=== PATIENT | female | born 1980 | race Caucasian/White ===

== ENCOUNTER 2016-10-05 18:27 | Emergency (ER) | payer OTHER ==
[~2016-10-05] VITALS: Ht 175.3 cm; Wt 113.5 kg
[~2016-10-05 18:27] MED LIST: CYMBALTA30 MG PO; LORTAB 10 MG-3473 ML PO; NEURONTIN300 MG PO; SEROQUEL50 MG PO; SUBOXONE 8 MG-1 EAC2 SL; TOPROL XL25 MG PO; XANAX1 MG PO; ZITHROMAX Z-PA250 MG PO
[2016-10-05] MEDS ORDERED: PERCOCET 5/31 TABLET PO (20:51)
[2016-10-05] MEDS ORDERED: CLEOCIN300 MG PO (20:51)
[2016-10-05 21:20] VITALS: BP 112/67
== END 2016-10-05 21:23 | disposition home or self-care (01) ==
LOC: EME 18:27
PROC: 0H9DXZZ Drainage of Right Lower Arm Skin, External Approach (ICD-10-PCS; principal; 2016-10-05)
DX: L02.413 Cutaneous abscess of right upper limb (principal); F17.200 Nicotine dependence, unspecified, uncomplicated
CPT/HCPCS: 87070; 87075; 87076; 87077; 87205; 99281; 99284

== ENCOUNTER 2016-10-07 20:13 | Emergency (ER) | payer OTHER ==
[~2016-10-07] VITALS: Ht 175.3 cm; Wt 112.1 kg
[~2016-10-07 20:13] MED LIST changes: +CLEOCIN300 MG PO; +PERCOCET 5/31 TABLET PO
[2016-10-07] MEDS ORDERED: PERCOCET 5/31 TABLET PO (21:08)
[2016-10-07 21:47] VITALS: BP 128/81
== END 2016-10-07 21:50 | disposition home or self-care (01) ==
LOC: EME 20:13
DX: L02.413 Cutaneous abscess of right upper limb (principal); Z48.01 Encounter for change or removal of surgical wound dressing; F17.200 Nicotine dependence, unspecified, uncomplicated
CPT/HCPCS: 99281; 99283

== ENCOUNTER 2016-11-08 02:04 | Inpatient (IN) | payer OTHER ==
[~2016-11-08] VITALS: Ht 172.7 cm; Wt 110.1 kg
[2016-11-08 02:37] LABS: MCH 31.7 PG (29.0-34.0); MCHC 33.4 G/DL (30.0-36.0); MCV 94.9 FL (83-99); MEAN PLAT.VOLUME 10.2 uM^3 (9.5-12.4); PLATELET COUNT 251 K/uL (156-360); RBC DIS.WIDTH-CV 12.6 % (11.8-14.6); RBC DIS.WIDTH-SD 43.5 % (39-53); RED BLOOD COUNT 4.95 M/uL (3.80-5.20); WHITE BLOOD COUNT 9.7 K/uL (4.1-10.2)
[2016-11-08 02:46] LABS: CHLORIDE 107 mEq/L (99-109); SODIUM 140 mEq/L (136-147)
[2016-11-08 02:48] LABS: GLUCOSE 78 mg/dL (70-99)
[2016-11-08 02:49] LABS: ANION GAP 11 MEQ/L (2-14)
[2016-11-08 02:51] LABS: SERUM ETHYL ALCOHOL < 10 mg/dL
[2016-11-08 02:52] LABS: GFR ESTIMATE (CALCULATED) > 59 mL/min/
[2016-11-08 02:53] LABS: UREA NITROGEN (BUN) 7 mg/dL (9-23)
[2016-11-08 03:00] LABS: QUANTITATIVE HCG < 4.0 MIU/ML
[2016-11-08 06:30] LABS: ADD MEDTOX COMMENT Y; AMPHETAMINE NEGATIVE (500 ng/mL); BARBITURATES NEGATIVE (200 ng/mL); BENZODIAZEPINES PRESUMPTIVE POSITIVE (150 ng/mL); COCAINE PRESUMPTIVE POSITIVE (150 ng/mL); INTERNAL CONTROLS VALID? YES; METHADONE NEGATIVE (200 ng/mL); METHAMPHETAMINE NEGATIVE (500 ng/mL); OPIATES (MORPHINE) NEGATIVE (100 ng/mL); OXYCODONE NEGATIVE (100 ng/mL); PHENCYCLIDINE NEGATIVE (25 ng/mL); PROPOXYPHENE NEGATIVE (300 ng/mL); THC CANNABINOIDS NEGATIVE (50 ng/mL); TRICYCLIC ANTIDEPRESSANTS PRESUMPTIVE POSITIVE (300 ng/mL)
[2016-11-08 07:13] LABS: BENZODIAZEPINES, URINE SCREEN POSITIVE (200 ng/mL)
[2016-11-08] MEDS ORDERED: CYMBALTA60 MG PO (08:44)
[2016-11-08] MEDS ORDERED: SUBOXONE 8 MG-1 EAC2 SL (08:44)
[2016-11-08] MEDS ORDERED: LEVO-T50 MCG PO (08:45)
[2016-11-08] MEDS ORDERED: TOPAMAX50 MG PO (08:45)
[2016-11-08 14:28] VITALS: BP 186/113
[2016-11-08 15:22] VITALS: BP 142/84
[2016-11-08] MEDS ORDERED: TOPIRAMATE100 MG PO (18:10)
[2016-11-08 19:07] VITALS: BP 152/85
[2016-11-09 07:48] VITALS: BP 137/82
[2016-11-09 15:27] VITALS: BP 142/101
[2016-11-09 18:21] VITALS: BP 127/76
[2016-11-10 08:00] VITALS: BP 129/71
[2016-11-10 15:53] VITALS: BP 141/83
[2016-11-11 07:33] VITALS: BP 155/89
[2016-11-11 12:52] VITALS: BP 144/81
[2016-11-11 15:19] VITALS: BP 140/93
[2016-11-12 07:55] VITALS: BP 137/86
[2016-11-12 15:37] VITALS: BP 134/83
[2016-11-13 07:42] VITALS: BP 163/93
[2016-11-13] MEDS ORDERED: OLANZAPINE10 MG PO (10:19)
== END 2016-11-13 11:22 | disposition home or self-care (01) | DRG 885 ==
LOC: EME 02:04 → EDOF 12:34 → 1WEST 12:34
PROVIDERS: Emergency Medicine
DX: F25.9 Schizoaffective disorder, unspecified (principal); R45.851 Suicidal ideations; F11.20 Opioid dependence, uncomplicated; F14.90 Cocaine use, unspecified, uncomplicated; F17.210 Nicotine dependence, cigarettes, uncomplicated; F13.10 Sedative, hypnotic or anxiolytic abuse, uncomplicated; G47.00 Insomnia, unspecified
CPT/HCPCS: 80048; 84702; 84999; 85027; 90839; 97150 GO; 97166 GO; 99281; 99285; G0480; J0572; Q0177